=== PATIENT | female | born 1985 | race Caucasian/White ===

== ENCOUNTER 2020-12-08 14:29 | Emergency (ER) | payer OTHER, SELFPAY ==
[2020-12-08 14:30] VITALS: BP 156/78; PULSE 72; RESP 14; TEMP 36.6; O2SAT 98; BMI 45.7
--- NOTE | 2020-12-08 14:39 | ED.RECABL ---
HPI - Recheck/Abnormal Lab/Rx General Chief Complaint: Recheck/Abnormal Lab/Rx Stated Complaint: Needs COVID Test To Go Back To Work Time Seen by Provider: 12/08/20 14:31 Source: patient Mode of arrival: Ambulatory History of Present Illness HPI narrative: Patient is a 35-year-old female. She has had her 1st COVID vaccine. She states she is due for her 2nd but has yet to get that completed. Does have some sinus congestion. No fevers. No problems breathing. Stated that she needed a COVID test to return to work. Related Data Allergies Allergy/AdvReac Type Severity Reaction Status Date / Time No Known Drug Allergies Allergy Verified 12/08/20 14:36 Review of Systems Constitutional Comments: No fevers ENT Comments: Does have sinus congestion Respiratory Comments: No cough or shortness of breath Integumentary/Breasts Skin/Breast: Reports system reviewed and no additional complaints, except as documented Hematologic/Lymphatic On Anticoagulants: No Patient History Medical History Patient denies medical problems Social History Smoking Status: Unknown if ever smoked Smoking Status: Unknown if ever smoked alcohol intake frequency: holidays/special occasions only Substance Use Type: does not use Exam Initial Vital Signs Initial Vital Signs: Vital Signs Temperature 97.9 F 12/08/20 14:30 Pulse Rate 72 12/08/20 14:30 Respiratory Rate 14 12/08/20 14:30 Blood Pressure 156/78 H 12/08/20 14:30 Pulse Oximetry 98 12/08/20 14:30 Const General: cooperative and comfortable HENMT Head: normal to inspection and normocephalic Resp Effort & Inspection: normal respiratory effort Cardio Rate: regular rate Neuro General: patient alert and patient awake Course Orders Ordered: ED Orders 12/08/20 14:34 COVID19 -Nasal swab/Pre-Proc Stat Vital Signs Vital signs: Vital Signs - 8 hr 12/08/20 14:30 Temperature 97.9 F Pulse Rate 72 Respiratory Rate 14 Blood Pressure 156/78 H Pulse Oximetry 98 MDM - Recheck/Abnormal Lab/Rx Lab Data Labs: Lab Results 12/08/20 Range/Units 14:34 SARS-CoV-2 (PCR) Negative (Negative) MDM Narrative Medical decision making narrative: COVID test negative, no indication for antibiotics, no indication for chest x-ray, patient was given return precautions and encouraged to it her 2nd COVID vaccine. She expressed understanding and agreement. Discharge Plan Departure Patient Disposition: Home Clinical Impression: Congestion of nasal sinus, Encounter for laboratory testing for COVID-19 virus Activity Restrictions/Additional Instructions: Your COVID test was negative. I do encourage you to go get your 2nd shot. Return to the emergency department for any new or worsening symptoms
[2020-12-08 14:58] LABS: COVID19 -Nasal RAPID Negative (Negative)
== END 2020-12-08 15:18 | disposition home or self-care (01) ==
PROVIDERS: Emergency Provider Emergency Medicine
DX: R09.81 Nasal congestion (principal); Z20.822 Contact with and (suspected) exposure to COVID-19
CPT/HCPCS: 87635; 99281; 99282; C9803

== ENCOUNTER 2021-01-01 20:23 | Emergency (ER) | payer OTHER, SELFPAY ==
[2021-01-01 20:30] VITALS: BP 133/66; PULSE 84; RESP 20; TEMP 36.7; O2SAT 100
[2021-01-01 20:52] LABS: COVID19 -Nasal RAPID Negative (Negative)
[2021-01-01 22:50] VITALS: BP 122/57; PULSE 63; O2SAT 97
--- NOTE | 2021-01-02 06:32 | ED.NAVMDI ---
HPI - Nausea/Vomiting/Diarrhea General Chief complaint: Nausea/Vomiting/Diarrhea Stated complaint: states covid symptoms Time Seen by Provider: 01/01/21 20:48 Source: patient Mode of arrival: Ambulatory History of Present Illness HPI Narrative: 35-year-old female nonsmoker with noncontributory medical history presents with a chief complaint of very symptoms including mild headache, nasal congestion and sore throat as well as cough with some marked body aches over the past day or 2. She has had nausea and perhaps an episode her to her vomiting but is largely at her baseline. She has concerned about COVID hoping to get tested Related Data Allergies Allergy/AdvReac Type Severity Reaction Status Date / Time No Known Drug Allergies Allergy Verified 12/08/20 14:36 Review of Systems Review of Systems Narrative: See HPI Patient History Medical History Patient denies medical problems Social History Smoking Status: Unknown if ever smoked Smoking Status: Unknown if ever smoked alcohol intake frequency: holidays/special occasions only Substance Use Type: does not use Exam Narrative Exam Narrative: GEN: AOx3 and in mild distress EYES: Pupils are equal, round, and reactive to light and accommodation. Extraoccular muscles are intact bilaterally. There is no subconjunctival hemorrhage or exudate. CHEST: Lungs are clear to auscultation bilaterally and free of wheezes, rales, or rhonchi. Heart rate is regular rhythm, there are no murmurs, clicks, rubs, or gallops. There is no chest wall tenderness. ABD: Abdomen is soft and nontender. There is no guarding or rebound. Bowel sounds are normal in all 4 quadrants. There is no mass or organomegaly. EXT: Full painless ROM of all extremities with no loss of sensation or strength. SKIN: Warm, pink, and dry. No erythema or rash Initial Vital Signs Initial Vital Signs: Vital Signs Temperature 98.0 F 01/01/21 20:30 Pulse Rate 84 01/01/21 20:30 Respiratory Rate 20 01/01/21 20:30 Blood Pressure 133/66 01/01/21 20:30 Pulse Oximetry 100 01/01/21 20:30 Course Vital Signs Vital signs: Vital Signs - 8 hr 01/01/21 22:50 Pulse Rate 63 Blood Pressure 122/57 L Pulse Oximetry 97 MDM - Nausea/Vomiting/Diarrhea Lab Data Labs: Lab Results 01/01/21 Range/Units 20:33 SARS-CoV-2 (PCR) Negative (Negative) MDM Narrative Medical decision making narrative: Patient history and physical are consistent with a viral syndrome. She has a very reassuring exam, COVID is negative, vital signs are reassuring. Patient would prefer to keep this evaluation simple and will return if things moving the wrong direction. Questions answered to her apparent satisfaction and return precautions discussed Discharge Plan Departure Patient Disposition: Home Clinical Impression: Encounter for laboratory testing for COVID-19 virus
== END 2021-01-02 00:25 | disposition home or self-care (01) ==
PROVIDERS: Emergency Provider Emergency Medicine
DX: R05.9 Cough, unspecified (principal); J02.9 Acute pharyngitis, unspecified; R11.2 Nausea with vomiting, unspecified; Z20.822 Contact with and (suspected) exposure to COVID-19
CPT/HCPCS: 87635; 99282; C9803